=== PATIENT | male | born 1965 | race Caucasian/White ===

== ENCOUNTER 2023-09-24 15:24 | Emergency (ER) | payer MEDICAID, SELFPAY ==
[2023-09-24 15:25] VITALS: BP 121/85; PULSE 67; RESP 16; TEMP 36.6; O2SAT 97; BMI 27.4
[2023-09-24 15:28] VITALS: BP 121/85; PULSE 67; RESP 16; TEMP 36.6; O2SAT 97
--- NOTE | 2023-09-24 15:34 | EKG12_ITS ---
Test Reason : CP Blood Pressure : / mmHG Vent. Rate : 062 BPM Atrial Rate : 062 BPM P-R Int : 174 ms QRS Dur : 118 ms QT Int : 410 ms P-R-T Axes : 028 -17 020 degrees QTc Int : 416 ms Normal sinus rhythm Incomplete right bundle branch block Borderline ECG Confirmed by Jevon Noriega ([id number]), script editor DEBBIE PEREZ ([id number]) on 09/25/2023 8:07:08 AM Referred By: SADIA/CRESCENCIO Confirmed By:Jevon Noriega
--- NOTE | 2023-09-24 15:46 | ED.VIS.CHEST ---
HPI History of Present Illness Chief Complaint: Chest Pain Narrative Narrative: 57-year-old male presenting with chest pain. He states been going on for about 3 weeks. He tells me it is a sharp pulsatile feeling in the left side of his chest that does not radiate. He does not get lightheaded or dizzy with it. He does have a past medical history of PTSD and anxiety and did take Ativan before coming to the ER. He states I am not a hypochondriac . He states something is wrong . Patient states he has a history of torsades in 2017 and he states that through [facility] and [facility] and nobody could determine the exact cause but believes since he was on a cruise that he developed some virus that caused him to go into torsades the point. He has not had this problem since but he has a history of V. tach. He is pacemaker defibrillator placed. He states it has not fired. He has a slight cough but no fevers or chills. He does not feel ill. No DVT/PE risk factors. He states that he was getting go for a run at the gym a few days ago and decided to jog in place in his kitchen when he noted that his pulse in his neck was very rapid. He did not count the rate. He did not get dizzy or lightheaded. [facility] Medical History Anxiety Arthritis Benzodiazepine dependence Cardiac arrest COPD (chronic obstructive pulmonary disease) DDD (degenerative disc disease) Erectile dysfunction Hx of ventricular fibrillation Hyperlipidemia MCTD (mixed connective tissue disease) Paroxysmal atrial fibrillation Presence of combination internal cardiac defibrillator (ICD) and pacemaker PTSD (post-traumatic stress disorder) Torsades de pointes Ventricular tachycardia Home Medications aspirin 325 mg tablet 325 mg PO DAILY 05/08/23 [History Last Taken Unknown] lorazepam 1 mg tablet 1 mg PO TID 05/08/23 [History Last Taken Unknown] mexiletine 200 mg capsule 200 mg PO Q8H 05/08/23 [History Last Taken Unknown] nadolol 40 mg tablet 80 mg PO DAILY 05/08/23 [History Last Taken Unknown] sildenafil 100 mg tablet 100 mg PO DAILY 05/08/23 [History Last Taken Unknown] Allergy/AdvReac Type Severity Reaction Status Date / Time No Known Allergies Allergy Verified 02/14/24 15:25 Family History Brother , 5 brothers Cirrhosis of liver Sister Cirrhosis of liver Father Gout Myocardial infarction Diabetes Hypertension CAD (coronary artery disease) Mother Brain cancer Surgical History History of permanent cardiac pacemaker placement Hx laparoscopic cholecystectomy Social History Smoking Status: Former smoker Smokeless tobacco user: chewing tobacco alcohol intake: former substance use type: former substance user Date of last use: 20 years ago, marijuana, crack/cocaine and other details: mushrooms, LSD ROS ROS ED Constitutional Constitutional ED: Denies chills, fever(s) or sweats Eyes Eyes: Denies blurry vision or change in vision ENT ENT ED: Denies ear pain or sore throat Cardiovascular Cardiovascular: Reports chest pain and palpitations; Denies racing heartbeat Respiratory/Chest Respiratory/Chest: Denies cough, dyspnea or sputum Gastrointestinal Gastrointestinal: Denies abdominal pain, constipation, diarrhea, nausea or vomiting Genitourinary Genitourinary ED: Denies dysuria, hematuria or urinary frequency Musculoskeletal Musculoskeletal: Denies arthralgias, myalgias or neck pain Integumentary Denies abscess, Abrasions or rash Neurologic Neurologic: Denies headache(s), paresthesias or weakness Psychiatric Psychiatric: Denies anxiety, depression, suicidal ideation or suicidal thoughts Endocrine Endocrinology: Denies polydipsia or polyuria EXAM Physical Exam Const Vital Signs: 09/24/23 15:25 09/24/23 15:28 09/24/23 15:31 Temperature 97.8 F 97.8 F Temperature Source Temporal Temporal Pulse Rate 67 67 Pulse Rate [Lying] Pulse Rate [Sitting (for 1 minute prior to obtaining)] Pulse Rate [Standing (for 1 minute prior to obtaining)] Respiratory Rate 16 16 Respiratory Effort Normal Short of Breath Blood Pressure 121/85 H 121/85 H Blood Pressure [Lying] Blood Pressure [Sitting (for 1 minute prior to obtaining)] Blood Pressure [Standing (for 1 minute prior to obtaining)] Blood Pressure Mean 97 97 Blood Pressure Mean [Lying] Blood Pressure Mean [Sitting (for 1 minute prior to obtaining)] Blood Pressure Mean [Standing (for 1 minute prior to obtaining)] Pulse Ox 97 97 Oxygen Delivery Method Room Air Room Air 09/24/23 15:38 09/24/23 15:58 09/24/23 16:30 Temperature Temperature Source Pulse Rate 60 Pulse Rate [Lying] 64 Pulse Rate [Sitting (for 1 minute prior to obtaining)] 72 Pulse Rate [Standing (for 1 minute prior to obtaining)] 80 Respiratory Rate 12 Respiratory Effort Blood Pressure 110/83 H Blood Pressure [Lying] 109/88 H Blood Pressure [Sitting (for 1 minute prior to obtaining)] 116/86 H Blood Pressure [Standing (for 1 minute prior to obtaining)] 104/77 Blood Pressure Mean 92 Blood Pressure Mean [Lying] 95 Blood Pressure Mean [Sitting (for 1 minute prior to obtaining)] 96 Blood Pressure Mean [Standing (for 1 minute prior to obtaining)] 86 Pulse Ox 94 Oxygen Delivery Method Room Air Room Air General Appearance ED: NAD; Negative for pallor HEENT Reports moist mucous membranes normocephalic and atraumatic Eyes PERRL and EOMs intact bilaterally Neck no lymphadenopathy Chest Wall inspection of chest normal and palpation of chest normal Resp normal respiratory effort and clear to auscultation bilaterally Auscultation: Negative for rales, rhonchi or wheezes Cardio regular rate and regular rhythm GI normal to inspection, nondistended, normoactive bowel sounds Neuro oriented x3 and CN's II-XII intact bilaterally Sensorium / Orientation: awake and alert Motor Exam: strength 5/5 throughout Psych mental status grossly normal Skin General Skin Exam: Negative for jaundice or pallor MDM MDM MDM Narrative Medical decision making narrative: Patient presenting with chest pain. He describes it as a pulsating sharp pain in the left upper chest which lasts for minutes at a time. He does not currently have the symptoms. No associated symptoms with this. Patient concerned because of history of torsades de pointes which happened in the auto isolated occasion after a cruise. It is speculated this was caused by a viral etiology. He has not return of this. He does have history of V. tach and has a pacemaker/defibrillator but states it has not fired. Differential includes ACS, CHF, torsades, V. tach, dehydration, anemia, electrolyte normalities, anxiety. Considered PE however patient is PERC negative. Patient not having ripping or tearing sensation to suspect dissection. Lungs are clear to auscultation bilaterally. CBC to assess white blood cell count, hemoglobin, platelets. BMP to assess renal function, electrolytes. EKG and high-sensitivity troponin to assess for ischemia. Chest pain rule out pneumonia. Hospitalization will obtain orthostatic vital signs.Will also have the patient ambulate in place while on the monitor to make sure he is not going to dysrhythmia. When the patient started to ambulate he does go from a kiana sinus rhythm to a paced rhythm. He does feel this. He states he is not being shocked. Orthostatic vital signs are normal. CBC, BMP, troponin all within normal limits. TSH normal. Magnesium normal. EKG on my interpretation shows a normal sinus rhythm with a ventricular rate of 62 bpm without evidence of ischemia or ectopy on my interpretation. Chest x-ray, interpretation shows no acute process. Radiology interprets this and agrees. I had the pacemaker interrogated and reviewed this with Dr. Noriega who came to the emergency room and thoroughly look to the paperwork. He states it looks like he is paced when he ambulates and did not think there was anything emergent. Is been no defibrillator firing. He has no tachycardic rhythms. Patient was still concerned and states there is something wrong . At this point I offered to call [facility] as he states has been seen there before and I spoke with on-call cardiology who did again review his case and we went over his rhythms and he states that there was nothing emergent about what needed to be done in follow-up. He recommended that the patient just have his pacemaker monitored as far as battery replacement. He did state that if the patient was very concerned/worried about the pacemaker itself he be happy to see them at the office. He just has to make an appointment with the cardiology office/EP office because he has not been seen there in 4 years. At this point the patient was in the hallway and had torn out his IV and was asking to go because his sons here. I was able to catch him in the hallway and discussed all of this with him and I told him that he can still follow-up with Dr. Douglas and also that he can follow-up [place] [facility] as well. Return precautions were discussed. Impression: 1. Palpitations 2. Chest pain 3. History of V. tach 4. History of torsades Lab Data Attestation: I reviewed the patient's lab results. Labs: Laboratory Results - last 24 hr 09/24/23 15:33 WBC 6.0 RBC 5.04 Hgb 15.6 Hct 46.2 MCV 91.7 MCH 31.0 MCHC 33.8 RDW Std Deviation 41.8 RDW Coeff of Kiki 12.5 Plt Count 210 MPV 9.7 Immature Gran % (Auto) 0.300 Neut % (Auto) 45.9 L Lymph % (Auto) 39.0 Rock % (Auto) 11.9 H Eos % (Auto) 2.2 Baso % (Auto) 0.7 Absolute Neuts (auto) 2.8 Absolute Lymphs (auto) 2.33 Nucleated RBC % 0 Sodium 140 Potassium 4.0 Chloride 106 Carbon Dioxide 29.0 Anion Gap 5 BUN 14 Creatinine 1.04 Estim Creat Clear Calc 95.92 Est GFR (MDRD) Af Amer 95 Est GFR (MDRD) Non-Af 79 BUN/Creatinine Ratio 13.5 Glucose 117 H Calcium 9.0 Magnesium 2.2 Troponin I High Sens 58 TSH 2.74 Radiography Diagnostic Testing: Clinical Impression(s) from Imaging Studies Chest X-Ray 09/24/23 15:55 IMPRESSION: No acute findings in the chest. Electronically Signed: Jarrett Donald MD at 16:19 EST , Discharge Plan Triage Chief Complaint: Chest Pain ED Provider: Enzo Mullen Dx/Rx/DC Orders Instructions: ED Chest Pain, Noncardiac, ED Palpitations Prescriptions: No Action sildenafil 100 mg tablet 100 mg PO DAILY Rx Instructions: administer 30 minutes to 4 hours before activity aspirin 325 mg tablet 325 mg PO DAILY mexiletine 200 mg capsule 200 mg PO Q8H nadolol 40 mg tablet 80 mg PO DAILY lorazepam 1 mg tablet 1 mg PO TID Primary Care Provider: Keyon Colbert Chi Referrals: Eliseo Douglas MD [Med Staff - Active Staff] - 3-5 Days Keyon Colbert Chi, MD [Primary Care Provider] - Disposition Disposition: Home, Self Care
[2023-09-24 15:53] LABS: Absolute Lymphocyte Count 2.33 X10^3/uL (0.83-4.51); Absolute Neutrophil Count 2.8 X10^3/uL (2.0-7.7); Basophil# 0.04 X10^3/uL; Basophil% 0.7 % (0-1); Eosinophil# 0.13 X10^3/uL; Eosinophils% 2.2 % (0-5); Hematocrit 46.2 % (40-54); Hemoglobin 15.6 g/dL (13.0-16.5); Lymphocyte # 2.33 X10^3/ul (0.83-4.51); Mean Corp Hgb Conc 33.8 g/dL (32-36); Mean Corpuscular Volume 91.7 fL (80-94); Mean Platelet Vol. 9.7 fl (6.2-12.0); Monocyte# 0.71 X10^3/uL; Monocyte% 11.9 % (0-10); NRBC Flagged by Analyzer 0 % (0-5); Neutrophil # 2.75 X10^3/uL (2.7-7.7); Neutrophil % 45.9 % (47-70); Platelet Count 210 K/mm3 (150-450); RBC Distribution Width CV 12.5 % (11.6-14.6); RBC Distribution Width SD 41.8 fl (35.1-43.9); Red Blood Count 5.04 M/mm3 (4.6-6.2)
--- NOTE | 2023-09-24 15:55 | RAD_ITS ---
EXAM: XR CHEST, 1 VIEW CLINICAL INDICATION: chest pain TECHNIQUE: Frontal view of the chest. COMPARISON: No relevant prior studies available. FINDINGS: LUNGS AND PLEURAL SPACES: Unremarkable. No consolidation or edema. No pneumothorax. No effusion. HEART: Unremarkable. Cardiac silhouette not enlarged. MEDIASTINUM: Central airways and mediastinal contour are unremarkable. BONES/JOINTS: Unremarkable. No acute fracture. SOFT TISSUES: Unremarkable. TUBES, LINES AND DEVICES: Left-sided pacemaker in good position. RAD/Chest 1 View (Portable) IMPRESSION: No acute findings in the chest. Electronically Signed: Jarrett Donald MD at 16:19 EST ,
[2023-09-24 15:58] VITALS: BP 104/77; BP 109/88; BP 116/86; PULSE 64; PULSE 72; PULSE 80
--- NOTE | 2023-09-24 15:59 | ED.RN ---
had pt jog in place, dual placer spikes noted. HR 104. strip printed and showed physician.
[2023-09-24 16:20] LABS: Anion Gap 5 (5-15); BUN 14 mg/dL (7-18); BUN/Creat Ratio 13.5 RATIO (10-20); Chloride 106 mmol/L (98-107); Creatinine, Serum 1.04 mg/dL (0.70-1.30); EST Glomerular Filtration Rate 79 mL/min (>60); Est Glom Filt Rate - Afr Amer 95 mL/min (>60); Estimated Creatinine Clearance 95.92 ml/min; Glucose 117 mg/dL (74-106); Magnesium 2.2 mg/dL (1.6-2.6); Sodium Level 140 mmol/L (136-145); Thyroid Stim Hormone (TSH) 2.74 uIU/mL (0.358-3.74); Troponin-I HS 58 pg/mL (3.0-78.0)
--- NOTE | 2023-09-24 16:20 | ED.RN ---
interrogating [place] Pacemaker
[2023-09-24 16:30] VITALS: BP 110/83; PULSE 60; RESP 12; O2SAT 94
--- NOTE | 2023-09-24 17:42 | NURSING ---
DR MATA FOR DR ACEVES
== END 2023-09-24 17:57 | disposition home or self-care (01) ==
PROVIDERS: Emergency Provider Student in an Organized Health Care Education/Training Program; PCP Family Medicine Geriatric Medicine; Visit Provider Student in an Organized Health Care Education/Training Program
DX: R00.2 Palpitations (principal); J44.9 Chronic obstructive pulmonary disease, unspecified; R07.9 Chest pain, unspecified; E78.5 Hyperlipidemia, unspecified; F41.9 Anxiety disorder, unspecified; F17.220 Nicotine dependence, chewing tobacco, uncomplicated; Z79.82 Long term (current) use of aspirin; Z79.899 Other long term (current) drug therapy; Z95.810 Presence of automatic (implantable) cardiac defibrillator
CPT/HCPCS: 71045; 80048; 83735; 84443; 84484; 85025; 93005; 99285; A4216

== ENCOUNTER 2024-12-07 09:41 | Emergency (ER) | payer MEDICAID, SELFPAY ==
[2024-12-07 09:42] VITALS: BP 133/95; PULSE 61; RESP 14; TEMP 36.1; O2SAT 99; BMI 29.7
--- NOTE | 2024-12-07 10:09 | EKG12_ITS ---
Test Reason : CP Blood Pressure : */* mmHG Vent. Rate : 60 BPM Atrial Rate : 60 BPM P-R Int : 220 ms QRS Dur : 106 ms QT Int : 408 ms P-R-T Axes : 15 -20 11 degrees QTcB Int : 408 ms Atrial-paced rhythm with prolonged AV conduction Abnormal ECG Confirmed by HERBIE LEVI, TIERNEY ([id number]), web content editor DEBBIE PEREZ ([id number]) on 12/08/2024 1:28:24 PM Referred By: TL/BRAYDEN Confirmed By: TIERNEY STONER MD
--- NOTE | 2024-12-07 10:11 | ED.VIS.CHEST ---
HPI History of Present Illness Chief Complaint: Chest Pain Informant: patient Narrative Narrative: Presents to the ED with left-sided chest pain this morning. Denies pain down his arm denies nausea denies vomiting denies dyspnea. He has had chronic cough. Remote tobacco. No history of [place]. Reports this past Friday had epigastric pain in the evening he was seen at outside ER in [place]. He had workup including CAT scan. He was told he had pulmonary nodules. He is told to follow-up with his PCP for this. He called yesterday and states issues with staff members getting him an appointment. He is concerned about the pulmonary nodules. He is also was told he had high cholesterol numbers through the ER. CVD Risk Factors: Positive for Hypercholesterolemia; Negative for Hypertension, Diabetes, Family History 1' </=55 or Smoking PE Risk Factors: Negative for Recent Travel/Surgery, Recent Immobilization or Prior DVT or PE [facility] Medical History MCTD (mixed connective tissue disease) Benzodiazepine dependence Hyperlipidemia Erectile dysfunction Hx of ventricular fibrillation Paroxysmal atrial fibrillation COPD (chronic obstructive pulmonary disease) Cardiac arrest Ventricular tachycardia Presence of combination internal cardiac defibrillator (ICD) and pacemaker DDD (degenerative disc disease) Arthritis Anxiety PTSD (post-traumatic stress disorder) Torsades de pointes Home Medications ?Medication ?Instructions ?Recorded ?Last Taken ?Type aspirin 325 mg tablet 325 mg PO DAILY 05/08/23 Unknown History lorazepam 1 mg tablet 1 mg PO TID 05/08/23 Unknown History mexiletine 200 mg capsule 200 mg PO Q8H 05/08/23 Unknown History nadolol 40 mg tablet 80 mg PO DAILY 05/08/23 Unknown History sildenafil 100 mg tablet 100 mg PO DAILY 05/08/23 Unknown History Allergy/AdvReac Type Severity Reaction Status Date / Time No Known Allergies Allergy Verified 12/07/24 09:42 Family History Brother , 5 brothers Cirrhosis of liver Sister Cirrhosis of liver Father Gout Myocardial infarction Diabetes Hypertension CAD (coronary artery disease) Mother Brain cancer Surgical History History of permanent cardiac pacemaker placement Hx laparoscopic cholecystectomy Social History Smoking Status: Former smoker Smokeless tobacco user: chewing tobacco alcohol intake: former substance use type: former substance user Date of last use: 20 years ago, marijuana, crack/cocaine and other details: mushrooms, LSD ROS ROS ED Constitutional Constitutional ED: Denies chills, fever(s) or sweats ENT ENT ED: Denies sore throat Cardiovascular Cardiovascular: Reports chest pain; Denies leg edema, palpitations or racing heartbeat Respiratory/Chest Respiratory/Chest: Denies cough, dyspnea or dyspnea on exertion Gastrointestinal Gastrointestinal: Denies abdominal pain, diarrhea, nausea or vomiting Genitourinary Genitourinary ED: Denies dysuria, hematuria or urinary frequency Musculoskeletal Musculoskeletal: Denies back pain, extremity pain or neck pain Integumentary Denies rash or wounds Neurologic Neurologic: Denies headache(s), paresthesias or weakness EXAM Physical Exam Const Vital Signs: 12/07/24 09:42 12/07/24 09:49 12/07/24 10:09 Temperature 97 F L Temperature Source Temporal Pulse Rate 61 Respiratory Rate 14 Respiratory Effort Normal Blood Pressure 133/95 H Blood Pressure Mean 107 Pulse Ox 99 Oxygen Delivery Method Room Air Room Air 12/07/24 11:10 Temperature Temperature Source Pulse Rate 60 Respiratory Rate 16 Respiratory Effort Blood Pressure 148/94 H Blood Pressure Mean 112 Pulse Ox 96 Oxygen Delivery Method Positive well nourished and well developed General Appearance ED: well developed and NAD HEENT Reports moist mucous membranes normocephalic and atraumatic Eyes General Eye ED: Yes normal appearance of both eyes Neck full ROM Chest Wall Chest: Negative for tenderness Resp normal respiratory effort and normal air movement Effort and Inspection: symmetric chest movement; Negative for respiratory distress Cardio regular rate, regular rhythm and no murmurs Peripheral Pulses: pulses 2+ throughout GI normal to inspection, nondistended, normoactive bowel sounds and non-tender Palpation: Negative for guarding or rebound tenderness present Extremity normal to inspection General Extremety ED: Negative for edema or tenderness General Extremity: Negative for edema Neuro oriented x3 and no sensory deficits noted Sensorium / Orientation: awake and alert Skin no rashes or lesions noted and no wounds Heart Score History: Slightly/Non-Suspicious ECG: Normal Age: >45 - <65 years Risk Factors: 1 or 2 Risk Factors Troponin: </= Normal Limit Score: 2 MDM MDM MDM Narrative Medical decision making narrative: Interventions / MDM: Differential diagnosis: Chest pain, pulmonary nodule Diagnosis considered but do not suspect: Pulmonary embolism however he had a CTA chest this past Friday records noting negative for PE. ACS however EKG no ischemic fine initial cardiac enzyme negative. My EKG interpretation: Paced rhythm rate of 60, no acute findings. Imaging independently reviewed and interpreted by myself: 1 view chest x-ray: No acute process, left-sided defibrillator device also read by radiology. External documents reviewed: Records obtained through [facility], ED visit from the 26 cardiac workup negative lipase also negative with his epigastric pain at that time. Troponins negative. CTA chest: Solitary 7 mm right lower lobe nodule. Test considered but not ordered:N/A ED course: Patient transient left-sided chest pain. EKG with no acute findings. Paced rhythm he has an AICD for history of torsades. Initiated cardiac workup in the ED. Was able obtain records noting the 7 mm right lobe nodule with Fleischner Society recommendations noted 18 to 24-month follow-up for low risk, high risk would be sooner. He has remote tobacco. I discussed and given the report for his findings. Discussed this would be outpatient follow-up with his doctor. He is more reassured for this. 1125: Initial troponin negative chest x-ray negative labs stable he remains asymptomatic. But is pending 2-hour troponin for cardiac rule out however patient states he needed to leave. Alert and oriented x 4 capable making decisions. He signed out against medical vice. He will follow-up with his PCP. Return precautions. All questions were answered. Re-evaluation: stable Disposition discussed with patient/family/significant other: Patient Case discussed with consulting clinician: N/A This note was generated with [employer] dictation software. It may contain incorrect words, spelling, and punctuation that were not noted in checking the note before signing. Lab Data Attestation: I reviewed the patient's lab results. Labs: Laboratory Results - last 24 hr 12/07/24 09:51 WBC 6.9 RBC 4.89 Hgb 15.3 Hct 44.3 MCV 90.6 MCH 31.3 MCHC 34.5 RDW Std Deviation 41.0 RDW Coeff of Kiki 12.6 Plt Count 200 MPV 9.9 Immature Gran % (Auto) 0.600 Neut % (Auto) 52.0 Lymph % (Auto) 35.0 [place] % (Auto) 8.5 Eos % (Auto) 3.2 Baso % (Auto) 0.7 Absolute Neuts (auto) 3.6 Absolute Lymphs (auto) 2.42 Nucleated RBC % 0 Sodium 138 Potassium 4.8 Chloride 102 Carbon Dioxide 24.2 Anion Gap 12 BUN 13 Creatinine 1.02 Estim Creat Clear Calc 106.03 Est GFR (MDRD) Non-Af 86 BUN/Creatinine Ratio 12.3 Glucose 112 H Calcium 9.1 Troponin T High Sens 6 Radiography Diagnostic Testing: Clinical Impression(s) from Imaging Studies Chest X-Ray 12/07/24 10:20 IMPRESSION: 1. No visible acute cardiopulmonary findings 2. Additional description as above. Reading Location: [id number] Discharge Plan Triage Chief Complaint: Chest Pain ED Provider: Karson Gifford Dx/Rx/DC Orders Clinical Impression: Chest pain, Presence of combination internal cardiac defibrillator (ICD) and pacemaker, Incidental pulmonary nodule, > 3mm and < 8mm Prescriptions: No Action sildenafil 100 mg tablet 100 mg PO DAILY Rx Instructions: administer 30 minutes to 4 hours before activity aspirin 325 mg tablet 325 mg PO DAILY mexiletine 200 mg capsule 200 mg PO Q8H nadolol 40 mg tablet 80 mg PO DAILY lorazepam 1 mg tablet 1 mg PO TID Primary Care Provider: NIKHIL LUO Referrals: Keyon Colbert Chi, MD [Med Staff - Active Staff] - Print Language: New Zealander Disposition Disposition: Against Medical Advice Discharge Date/Time: 12/07/24 11:33
[2024-12-07 10:17] LABS: Absolute Lymphocyte Count 2.42 X10^3/uL (0.83-4.51); Absolute Neutrophil Count 3.6 X10^3/uL (2.0-7.7); Basophil# 0.05 X10^3/uL; Basophil% 0.7 % (0-1); Eosinophil# 0.22 X10^3/uL; Eosinophils% 3.2 % (0-5); Hematocrit 44.3 % (40-54); Hemoglobin 15.3 g/dL (13.0-16.5); Lymphocyte # 2.42 X10^3/ul (0.83-4.51); Mean Corp Hgb Conc 34.5 g/dL (32-36); Mean Corpuscular Hgb 31.3 pg (27.0-32.0); Mean Corpuscular Volume 90.6 fL (80-94); Mean Platelet Vol. 9.9 fl (6.2-12.0); Monocyte# 0.59 X10^3/uL; Monocyte% 8.5 % (0-10); NRBC Flagged by Analyzer 0 % (0-5); Neutrophil # 3.59 X10^3/uL (2.7-7.7); Platelet Count 200 K/mm3 (150-450); RBC Distribution Width CV 12.6 % (11.6-14.6); Red Blood Count 4.89 M/mm3 (4.6-6.2); White Blood Count 6.9 K/mm3 (4.4-11.0)
--- NOTE | 2024-12-07 10:20 | RAD_ITS ---
PROCEDURE: CHEST 1 VIEW (PORTABLE) (RADCXPA_P), 12/07/2024 REASON FOR EXAM: CHEST PAIN TECHNIQUE: A single portable AP view of the chest was obtained. COMPARISON: 09/24/2023 FINDINGS: Heart: Similar LEFT chest wall dual lead pacer/defibrillator. Mediastinum: Trace atherosclerosis in the arch Lungs/pleura: No focal consolidation. No sizeable pleural effusion or visible pneumothorax. Similar suspected granuloma in the RIGHT apex. Bones: Unremarkable. Lines and support devices: None. Other: None. RAD/Chest 1 View (Portable) IMPRESSION: 1. No visible acute cardiopulmonary findings 2. Additional description as above. Reading Location: [id number]
[2024-12-07 10:44] LABS: Anion Gap 12 (5-15); BUN 13 mg/dL (4-19); BUN/Creat Ratio 12.3 RATIO (10-20); Calcium,Total 9.1 mg/dL (7.6-11.0); Carbon Dioxide 24.2 mmol/L (21.0-32.0); Chloride 102 mmol/L (98-108); Creatinine, Serum 1.02 mg/dL (0.70-1.20); EST Glomerular Filtration Rate 86 (>60); Estimated Creatinine Clearance 106.03 ml/min (50-250); Glucose 112 mg/dL (70-99); Potassium 4.8 mmol/L (3.3-5.1); Sodium Level 138 mmol/L (133-145); Troponin T High Sensitivity 6 ng/L (<=22)
[2024-12-07 11:10] VITALS: BP 148/94; PULSE 60; RESP 16; O2SAT 96
--- NOTE | 2024-12-07 11:29 | ED.RN ---
Pt called this RN to room, requests to leave AMA, declines waiting on repeat Troponin despite being educated on risks up to and including .
== END 2024-12-07 11:33 | disposition left against medical advice (07) ==
PROVIDERS: Emergency Provider Emergency Medicine; Visit Provider Emergency Medicine
DX: R07.9 Chest pain, unspecified (principal); J44.9 Chronic obstructive pulmonary disease, unspecified; I48.0 Paroxysmal atrial fibrillation; R91.1 Solitary pulmonary nodule; Z53.29 Procedure and treatment not carried out because of patient's decision for other reasons; E78.00 Pure hypercholesterolemia, unspecified; R05.3 Chronic cough; Z79.82 Long term (current) use of aspirin; Z79.899 Other long term (current) drug therapy; Z87.891 Personal history of nicotine dependence; Z95.810 Presence of automatic (implantable) cardiac defibrillator
CPT/HCPCS: 71045; 80048; 84484; 85025; 93005; 99284; A4216